=== PATIENT | male | born 1960 | race Hispanic/Latino ===

== ENCOUNTER 2019-08-07 08:36 | Inpatient (IN) | payer BC ==
[2019-08-07] MEDS ORDERED: NACL 0.9% 1000 ML 1,000 ML ONE (09:09)
[2019-08-07] MEDS ORDERED: NACL 0.9% 1000 ML 1,000 ML IV ONE (09:13)
[2019-08-07] MEDS ORDERED: ADRENALIN 8 MG in NACL 0.9% 250ML 242 ML IV ONE ×2 (09:13→09:30)
--- NOTE | 2019-08-07 09:13 | Emergency Department Report ---
ED CPR HPI - General Stated Complaint: UNRESPONSIVE Time Seen by Provider: 08/07/19 08:36 Source: EMS Mode of arrival: Stretcher Limitations: Altered Mental Status, Physical Limitation - History of Present Illness Initial Comments: Patient is a 59-year-old male that presents emergency room in full cardiac arrest with EMS. EMS states the patient has stage IV lung cancer with me tastasis to liver. EMS states that the patient is not doing any type of treatment for his cancer. EMS states the patient is not a DO NOT RESUSCITATE and did not have a documented DO NOT RESUSCITATE available. EMS states they had return of spontaneous circulation just before arrival but lost pulses again on the ramp. Patient was not intubated by EMS. Patient and provided oxygen via BVM and chest compressions by paramedics. Complaint: found unresponsive -: unknown Place: home Bystander CPR Performed: No AED Applied by Bystander/Support Dba: No Shock Advised: No Initial Findings in the Field: unresponsive, no respirations, no pulse ROSC in the Field: Yes Associated Injuries: No Treatments Prior to Arrival: BMV, chest compressions, epinephrine mgs # - Related Data Allergies Allergy/AdvReac Type Severity Reaction Status Date / Time No Known Allergies Allergy Verified 08/07/19 10:19 ED Review of Systems ROS: Stated complaint: UNRESPONSIVE Other details as noted in HPI Comment: Unobtainable due to pts medical conditions ED Past Medical Hx - Past Medical History Additional medical history: lung cancer. - Surgical History Past Surgical History?: No - Family History Family history: no significant - Social History Smoking Status: Unknown if ever smoked Substance Use Type: Other ED Physical Exam - General Limitations: Altered Mental Status, Physical Limitation General appearance: obtunded - Head Head exam: Present: atraumatic, normocephalic - Eye Eye exam: Present: other (fixed pupils) - ENT ENT exam: Present: mucous membranes dry - Neck Neck exam: Present: normal inspection - Respiratory Respiratory exam: Present: other (pt intubated) - Cardiovascular Cardiovascular Exam: Present: other - GI/Abdominal GI/Abdominal exam: Present: soft - Rectal Rectal exam: Present: deferred - Extremities Exam Extremities exam: Present: normal inspection - Neurological Exam Neurological exam: Present: altered - Skin Skin exam: Present: warm, dry, intact, normal color. Absent: rash ED Course Vital Signs 08/07/19 08/07/19 09:19 12:50 Pulse Rate 53 L 46 L Respiratory 26 H Rate Blood Pressure 51/26 [Left] - Reevaluation(s) Reevaluation #1: Patient arrived via EMS. Initial evaluation done. Patient Ross in the field however lost his pulse upon arrival. CPR started. See code note. 08/07/19 08:34 Reevaluation #2: Patient had return of spontaneous circulation during toe. See code no. Patient given multiple medications and shocked multiple times. Patient will be started on epi drip. 08/07/19 09:13 Reevaluation #3: I discussed case with family. Family states the patient did not want to be revived or have CPR. Patient's sister and family are here and the patient's sister signed a DO NOT RESUSCITATE form. Form witnessed by nurse. 08/07/19 09:30 Reevaluation #4: Patient's family refused blood draw. Patient's family states the only want the patient to be on a epinephrine drip and allowed to of natural causes. Family states they want the patient on epi drip in order to allow time for the patient's daughter to arrive. 08/07/19 10:04 - Consultations Consultation #1: Hospitalist consult for admission. Hospitalist of the patient. Patient to be admitted to the ICU. Bridge orders place. 08/07/19 10:17 - EJ/Peripheral Line Neck R Time Out Performed: Yes Indications: multiple IV sites needed Skin Cleansed in Sterile Fashion: Yes Size: 18 Dressing Placed: Tegaderm, tape Patient Tolerated Procedure: well, no complications - Intubation Time Out Performed: Yes Sedative: none Laryngoscope: fiberoptic video scope Size: 3 Assist Device Used: fiberoptic device ET Tube Size: 7.5 Tube Secured Depth (cm): 24 Tube Secured Location: teeth Tube Placement Confirmation: visualized tube passing t, equal breath sounds bilat, no breath sounds over epi, confirmation by capnometr Patient Tolerated Procedure: well, no complications Intubation Complications: none ED Medical Decision Making - Medical Decision Making Patient is a 59-year-old male Emergency room with a full cardiac arrest. Patient has a history of stage IV lung cancer and is not seeking aggressive therapies per EMS and the family.. code ran in accordance with ACLS protocol. Patient had spontaneous return of circulation after multiple meds and interventions. I discussed with the family and the patient's situation and case and the family decided to make the patient a DO NOT RESUSCITATE. Family states that the patient verbalized to them that he did not want to be resuscitated or placed on life support. Patient admitted to the hospitalist service. Patient's family refused any type of intervention except for an epinephrine drip and family also refused blood draws. - Differential Diagnosis cardiac arrest. Critical Care Time: Yes Critical care attestation.: If time is entered above; I have spent that time in minutes in the direct care of this critically ill patient, excluding procedure time. Critical Care Time: 45 minutes ED Disposition Clinical Impression: Cardiac arrest Disposition: [id number] OP ADMIT IP TO THIS HOSP Is pt being admited?: Yes Does the pt Need Aspirin: No Condition: Critical Time of Disposition: 10:27
[2019-08-07] MEDS ORDERED: ASPIRIN PR ONE (10:00)
--- NOTE | 2019-08-07 11:12 | Event Note ---
Date: 08/07/19 59-year-old male with medical history significant for stage IV lung cancer metastasized to the liver was brought via EMS for cardiac arrest. Patient was assisted according to ACLS protocol. Patient was coded twice in the emergency department. I was called by Dr Nova to admit this patient. Patient was discharged on 08/05/19 from [facility] and was told nothing much can be done and was sent home. Patient refused hospice care. Patient was intubated on mechanical ventilation, not breathing over the vent. His brothers and sisters were in the room and the patient has a daughter she is estranged and they never spoke. They tried to reach to her and her via on the phone and text she didn't respond. Pupils are fixed and dilated. The Family made him DNR before I saw him and family wants to stop the Epi drip and take out the tube. Called the RT to take out the tube. The high probability of a clinically significant, sudden or life threatening deterioration of the [respiratory, neurology, Cardiovascular] system(s) required my full and direct attention, intervention and personal management. The aggregate critical care time was [45] minutes. This time is in addition to time spent performing reported procedures but includes the following: [x] Data Review and interpretation [x] Patient assessment and monitoring of vital signs [x] Documentation [x] Medication orders and management
[2019-08-07 12:54] VITALS: BP 51/26
[2019-08-07] MEDS ORDERED: ZEMURON IV ONE (13:00)
--- NOTE | 2019-08-07 13:01 | History and Physical Report ---
History of Present Illness Date of examination: 08/07/19 Date of admission: 08/07/19 10:24 Chief complaint: Cardiac Arrest History of present illness: 59-year-old male with medical history significant for stage IV lung cancer metastasized to the liver was brought via EMS for cardiac arrest. Patient was assisted according to ACLS protocol. Patient was coded twice in the emergency department. I was called by Dr Nova to admit this patient. Patient was discharged on 08/05/19 from [facility] and was told nothing much can be done and was sent home. Patient refused hospice care. Patient was intubated on mechanical ventilation, not breathing over the vent. His brothers and sisters were in the room and the patient has a daughter she is estranged and they never spoke. They tried to reach to her and her via on the phone and text she didn't respond. Pupils are fixed and dilated. The Family made him DNR before I saw him and family wants to stop the Epi drip and take out the tube. Patient was extubated, and epi drip discontinued. ROS couldn't be obtained because the patient is comatose. Past History Past Medical History: cancer Past Surgical History: Other (he didn't obtain because the patient is comatose.) Social history: other (he didn't obtain because the patient is comatose.) Family history: cancer (mother of cancer) Medications and Allergies Allergies Allergy/AdvReac Type Severity Reaction Status Date / Time No Known Allergies Allergy Verified 08/07/19 10:19 Active Meds: Active Medications Epinephrine 8 mg/ Sodium (Chloride) 250 mls @ 3.75 mls/hr IV TITR ONE; Protocol Stop: 08/10/19 03:52 Last Admin: 08/07/19 10:35 Dose: 2 mcg/min, 3.75 mls/hr Documented by: Review of Systems ROS unobtainable: due to mental status (he didn't obtain because the patient is comatose.) Exam - Physical Exam Narrative exam: Patient has gasping respirations. The patient appeared well nourished and normally developed. Vital signs as documented. Head exam is unremarkable. No scleral icterus . Neck is without jugular venous distension, thyromegaly, or carotid bruits. Lungs are clear to auscultation. Cardiac exam reveals regular rate and Rhythm. Abdominal exam reveals normal bowel sounds. Extremities are nonedematous and both femoral and pedal pulses are normal. POLYSOMNOGRAPHY TECHNOLOGIST: comatose, GCS 3. - Constitutional Vitals: Temp Pulse Resp BP Pulse Ox 46 L 26 H 51/26 08/07/19 12:50 08/07/19 12:50 08/07/19 12:50 Results - Labs Labs: Laboratory Last Values POC Glucose 79 (70-105) 08/07/19 08:46 Assessment and Plan Assessment and plan: Status post cardiac arrest - Patient was coded twice and successfully resuscitated - Patient is DNR, DNI - Tube taken out - Will put him on morphine Stage 4 lung cancer - no treatment needed Family wants to make him DNR DNI, refused blood draw and treatment. Prognosis grave. The high probability of a clinically significant, sudden or life threatening deterioration of the [neurology, CV, respiratory] system(s) required my full and direct attention, intervention and personal management. The aggregate critical care time was [45] minutes. This time is in addition to time spent performing reported procedures but includes the following: [x] Data Review and interpretation [x] Patient assessment and monitoring of vital signs [x] Documentation [x] Medication orders and management Advance Directives: No Contraindication Mechanical VTE Prophylaxis: Treatment Not Indicated Plan of care discussed with patient/family: Yes
[2019-08-07] MEDS ORDERED: MORPHINE IV PRN (13:07)
--- NOTE | 2019-08-07 17:32 | Death Summary ---
Summary - Providers Date of service: 08/07/19 Attending: DC JOHNSON MD - summary Date of admission: 08/07/19 10:24 Date of : 08/07/19 Reason for admission: cardiac arrest Significant findings: 59-year-old male with medical history significant for stage IV lung cancer metastasized to the liver was brought via EMS for cardiac arrest. Patient was assisted according to ACLS protocol. Patient was coded twice in the emergency department. I was called by Dr Nova to admit this patient. Patient was discharged on 08/05/19 from [facility] and was told nothing much can be done and was sent home. Patient refused hospice care. Patient was intubated on mechanical ventilation, not breathing over the vent. His brothers and sisters were in the room and the patient has a daughter she is estranged and they never spoke. They tried to reach to her and her via on the phone and text she didn't respond. Pupils are fixed and dilated. The Family made him DNR before I saw him and family wants to stop the Epi drip and take out the tube. Patient was extubated, and epi drip discontinued.Patient at 13:12 - Final diagnosis (1) Stage 4 lung cancer Note: Final diagnosis: (2) Cardiac arrest Note: Final diagnosis:
== END 2019-08-07 15:40 | DRG 297 ==
LOC: ED 08:36 → CC1 10:24
PROVIDERS: ADMIT Internal Medicine; ATTEND Internal Medicine
PROC: 5A1935Z Respiratory Ventilation, Less than 24 Consecutive Hours (ICD-10-PCS; principal; 2019-08-07)
PROC: 0BH17EZ Insertion of Endotracheal Airway into Trachea, Via Natural or Artificial Opening (ICD-10-PCS; 2019-08-07)
DX: I46.9 Cardiac arrest, cause unspecified (principal); C34.90 Malignant neoplasm of unspecified part of unspecified bronchus or lung; Z66 Do not resuscitate; Z80.9 Family history of malignant neoplasm, unspecified
CPT/HCPCS: 82962; 94002; 96361; 96365; G0378; J0171; J7030; J7050